=== PATIENT | female | born 1940 | race Caucasian/White ===

== ENCOUNTER 2019-12-14 12:27 | Outpatient (CLI) | payer MEDICARE, SELFPAY ==
--- NOTE | 2019-12-14 12:48 | ECHO_ITS ---
Patient Info Name: Mary Jo Salmon Age: 79 years : 1940 Gender: Female Ht: 66 in Wt: 205 lbs BSA: 2.12 m2 HR: 63 bpm BP: 136 / 67 mmHg Technical Quality: Good Exam Date: 12/14/2019 1:16 PM Exam Location: [facility] Patient Status: Outpatient Admit Date: 12/14/2019 Staff Ordering Physician: Gloria Noguera MD Sales Development Representative: Aris Foreman RDCS, RT Attending Provider: Gloria Noguera MD Referring Physician: Chuckie MCCORMICK; Exam Type: CA echo doppler color flow Study Info Indications J81.1 - Chronic pulmonary edema Complete two-dimensional, color flow and Doppler transthoracic echocardiogram is performed. Summary 1. Left ventricular chamber dimension is normal. 2. Left ventricular systolic function is normal, estimated at 60-65%. 3. The left ventricular diastolic function is grade I diastolic dysfunction. 4. E/e' 14 is elevated. 5. Global longitudinal strain is normal at -17.9%. 6. There is mild mitral valve regurgitation. 7. There is trace pulmonic regurgitation. 8. Dilated inferior vena cava with >50% collapse upon inspiration consistent with elevated right atrial pressure, 10 mmHg. Left Ventricle E/e' 14 is elevated. Global longitudinal strain is normal at -17.9%. Left ventricular chamber dimension is normal. Left ventricular systolic function is normal, estimated at 60-65%. The left ventricular diastolic function is grade I diastolic dysfunction. Right Ventricle Right ventricular chamber dimension is normal. Right ventricular systolic function is normal. Left Atria Left atrial chamber dimension is normal. Right Atria Right atrial chamber dimension is normal. Aortic Valve The aortic valve is trileaflet. There is no aortic valve stenosis. There is no aortic valve regurgitation. Pulmonic Valve There is trace pulmonic regurgitation. Mitral Valve There is no mitral valve stenosis. There is mild mitral valve regurgitation. Tricuspid Valve There is no tricuspid valve regurgitation. Pericardium/Pleural There is no pericardial effusion. Inferior Vena Cava Dilated inferior vena cava with >50% collapse upon inspiration consistent with elevated right atrial pressure, 10 mmHg. Aorta The aortic root size at the sinus of Valsalva is normal. Left Ventricular Outflow Tract Name Value Normal LVOT 2D LVOT Diameter 2.0 cm LVOT Doppler LVOT Peak Gradient 3 mmHg LVOT Mean Gradient 2 mmHg LVOT VTI 22 cm LVOT VTI/AV VTI Ratio 0.8 LVOT Stroke Volume 64 ml LVOT CO 4.1 l/min LVOT CI 1.9 l/min/m2 Mitral Valve Name Value Normal MV Doppler MV Decel [place] 283 cm/s2 MV PHT
[2019-12-14 15:00] VITALS: O2SAT 87
[2019-12-14 15:03] VITALS: O2SAT 87
[2019-12-14 15:05] VITALS: O2SAT 94
[2019-12-14 15:10] VITALS: O2SAT 91
[2019-12-14 15:20] VITALS: O2SAT 94
--- NOTE | 2019-12-14 15:25 | HOMEO2EVAL ---
Home Oxygen Evaluation RC: Home Oxygen (O2) Evaluation Start: 12/14/19 15:21 Freq: Status: Active Protocol: RPE Activity Type Activity Date Activity User E-Sign Co-Sign Detail Recorded Client Recorded Date Recorded By Document 12/14/19 15:00 [email or web address] [email or web address] 12/14/19 15:25 JOSS Document 12/14/19 15:03 [email or web address] [email or web address] 12/14/19 15:25 JOSS Document 12/14/19 15:05 [email or web address] [email or web address] 12/14/19 15:25 JOSS Document 12/14/19 15:10 [email or web address] [email or web address] 12/14/19 15:25 JOSS Document 12/14/19 15:20 [email or web address] [email or web address] 12/14/19 15:25 JOSS 12/14/19 12/14/19 12/14/19 15:00 15:03 15:05 Home O2 Evaluation Test Phase Resting Resting Resting Oxygen Delivery Room Air Nasal Cannula Nasal Cannula Oxygen Flow Rate (L/min) 1 2 Pulse Oximetry (90-100 %) 87 L 87 L 94 Ambulation Distance (feet) Home Oxygen Evaluation Comments Treatment Charges O2 Evaluation 12/14/19 12/14/19 15:10 15:20 Home O2 Evaluation Test Phase Exercise Resting Oxygen Delivery Nasal Cannula Nasal Cannula Oxygen Flow Rate (L/min) 2 2 Pulse Oximetry (90-100 %) 91 94 Ambulation Distance (feet) 400 Home Oxygen Evaluation Comments PT REQUIRES 2 AT REST AND WITH ACTIVITY Treatment Charges
--- NOTE | 2019-12-16 14:13 | P.PCNPFT_ITS ---
PFT Interpretation PFT Interpretation: DOS: 12/14/2019 REQUESTING: Dr Noguera REASON FOR TESTING: Shortness of breath PULMONARY FUNCTION TESTS Results are reproducible and reliable. Spirometry: FEV1 33%, 0.65 L. FEV1 67%. FEV1% is 34% predicted. There is a non- statistically significant response to bronchodilator. Lung volumes: TLC 112%, normal. RV 168% consistent with severe air trapping. Airway resistance is 717%, severely increased. Diffusion: DLCO is 37%, severely decreased. Flow volume loop: Severe scooping of the expiratory limb. IMPRESSION: Severe obstructive ventilatory impairment, severe air trapping, severe diffusion impairment. Lack of response to bronchodilators should not preclude use if clinically indicated. This pattern is consistent with emphysema. Gloria Noguera MD
== END 2019-12-14 12:28 | disposition home or self-care (01) ==
PROVIDERS: PCP Family Medicine; Visit Provider Internal Medicine Critical Care Medicine
DX: J96.11 Chronic respiratory failure with hypoxia (principal); J44.9 Chronic obstructive pulmonary disease, unspecified; R94.2 Abnormal results of pulmonary function studies
CPT/HCPCS: 93306; 94060; 94618; 94726; 94729

== ENCOUNTER 2021-06-20 12:26 | Outpatient (CLI) | payer MEDICARE, SELFPAY ==
--- NOTE | ~2021-06-20 | MMUS_ITS ---
EXAMINATION: MM diagnostic [place] LT w [place], US breast LT limited HISTORY: Left breast asymmetry on screening mammogram TECHNIQUE: Additional 3-D tomosynthesis images of the left breast were performed and synthetic 2-D im ages were generated. CAD analysis was submitted and interpreted. High resolution limited left breast ultrasound was performed. COMPARISON: 05/29/2021 FINDINGS: MAMMOGRAPHIC FINDINGS: There is a persistent asymmetry in the middle third of the upper breast 10.5 cm from the nipple on th e mediolateral oblique view. No suspicious calcification is identified. ULTRASOUND: There is no evidence of focal abnormal solid or cystic mass in the vicinity of the mammographic findi ng in question. IMPRESSION: 1. Probably benign left breast asymmetry. 2. Recommend 6 month follow-up left diagnostic mammogram and possible ultrasound. BI-RADS category 3, probably benign findings. Reviewed, dictated and finalized at location A. [employer] IMPRESSION: 1. Probably benign left breast asymmetry. 2. Recommend 6 month follow-up left diagnostic mammogram and possible ultrasoun d. BI-RADS category 3, probably benign findings.
== END 2021-06-20 12:27 | disposition home or self-care (01) ==
LOC: ANHIMG 12:28
PROVIDERS: PCP Family Medicine; Visit Provider Family Medicine
DX: R92.8 Other abnormal and inconclusive findings on diagnostic imaging of breast (principal)
CPT/HCPCS: 76642; 77061; 77065; G0279